=== PATIENT | female | born 1960 | race Caucasian/White ===

== ENCOUNTER 2024-05-27 09:12 | Emergency (ER) | payer MEDICAID ==
[~2024-05-27] VITALS: Ht 142.2 cm; Wt 40.0 kg
[~2024-05-27 09:12] MED LIST: ALPR2TAB2 PO; OLAN20TA PO
[2024-05-27 10:36] LABS: Urine Bacteria FEW /hpf (None Seen); Urine Blood Negative /uL (Negative); Urine Budding Yeast OCCASIONAL /hpf (None Seen); Urine Clarity Clear (Clear); Urine Color Light-Yellow (Yellow); Urine Protein, UAD Negative (Negative); Urine Specific Gravity 1.012 (1.001-1.035); Urine Urobilinogen Normal (Negative); Urine WBC 8 /hpf (0 - 5); Urine pH 6.5 (5.0-9.0)
[2024-05-27 11:18] LABS: Basophils # (auto) 0.1 10 ^3/uL (0-0.2); Basophils % (auto) 0.9 % (0.0-2.0); Eosinophils # (auto) 0.1 10 ^3/uL (0-0.8); Eosinophils % (auto) 1.6 % (0.0-7.0); Hematocrit 34.5 % (36.0-46.0); Lymphocytes % (auto) 24.2 % (10.0-50.0); Mean Corpuscular Hemoglobin 31.3 pg (28.0-32.0); Mean Corpuscular Hgb Conc. 34.7 g/dL (32.0-36.0); Mean Corpuscular Volume 90.4 fL (80.0-100.0); Monocytes # (auto) 0.9 10 ^3/uL (0-1.3); Monocytes % (auto) 10.8 % (0.0-12.0); Neutrophils # (auto) 5.3 10 ^3/uL (1.6-8.6); Neutrophils % (auto) 62.5 % (37.0-80.0); Red Blood Cells 3.82 10^6/uL (4.0-5.20); Red Cell Distribution Width 13.6 % (11.8-14.3); White Blood Cell 8.4 10^3/uL (4.4-10.8)
[2024-05-27 11:28] VITALS: TEMP 98.4
[2024-05-27 11:45] LABS: Chloride 93 mmol/L (98-107); Sodium 124 mmol/L (136-145)
[2024-05-27] MEDS: cefTRIAXone SOD 1,000 MG VL IM ONE (11:45)
[2024-05-27 11:46] LABS: Anion Gap 8 (5-15); Carbon Dioxide 23 mmol/L (20-30)
[2024-05-27 11:47] LABS: Calcium 9.3 mg/dL (8.7-10.4)
[2024-05-27] MEDS: IPRATROPIUM BROM 0.5 MG/2.5ML INH SOL NEB ONE (11:50)
[2024-05-27] MEDS: ALBUTEROL SULF 2.5 MG/0.5ML(0.5%) NEB SOLN NEB ONE (11:50)
[2024-05-27 11:51] LABS: BUN/Creatinine Ratio 8.3 (10.0-20.0); Blood Urea Nitrogen 6 mg/dL (9-23); Glucose 94 mg/dL (74-106)
[2024-05-27 11:54] VITALS: O2SAT 95
[2024-05-27] MEDS ORDERED: MELO7.5T7 PO (12:08)
[2024-05-27] MEDS ORDERED: BACDST PO (12:08)
[2024-05-27 12:12] VITALS: BP 146/90; PULSE 81; RESP 18
[2024-05-27] MEDS: HYDROmorphone HCL 2 MG/ML VL/or syr IM ONE (12:12)
== END 2024-05-27 12:30 | disposition home or self-care (01) ==
LOC: EDBD 09:12 → ER 09:12 → EDSEX 09:12 → ER 12:30
DX: M53.82 Other specified dorsopathies, cervical region (principal); N30.90 Cystitis, unspecified without hematuria; F17.210 Nicotine dependence, cigarettes, uncomplicated; F12.10 Cannabis abuse, uncomplicated; J44.9 Chronic obstructive pulmonary disease, unspecified; I12.9 Hypertensive chronic kidney disease with stage 1 through stage 4 chronic kidney disease, or unspecified chronic kidney disease; N18.9 Chronic kidney disease, unspecified; Z98.51 Tubal ligation status; Z87.440 Personal history of urinary (tract) infections
CPT/HCPCS: 36415; 72040; 80048; 81001; 85025; 94640; 96372; 99284; J0696; J1170

== ENCOUNTER 2025-06-30 10:37 | Inpatient (IN) | payer MEDICAID, OTHER ==
[~2025-06-30] VITALS: Ht 142.2 cm; Wt 42.5 kg
[~2025-06-30 10:37] MED LIST changes: +BACDST PO; +MELO7.5T7 PO
[2025-06-30 10:39] VITALS: TEMP 98.2
--- NOTE | 2025-06-30 11:02 | ED.PDOC ---
GI ASSESSMENT HPI Comments 65-year-old female with a history of hypertension, COPD and CKD brought in by private car complaining of constipation for the last 3 weeks, only having intermittent liquid bowel movements despite taking medication for constipation, associated with left lower quadrant abdominal pain, nausea, dysuria and gas pain. Patient denies fever or vomiting, but states she has very dark malodorous urine despite taking Keflex a week ago. She states she is currently on Zithromax for a respiratory illness. Chief Complaint: Constipation Time Seen by MD: 10:45 Primary Care Provider: INDERJIT Allergies: Coded Allergies: NO KNOWN ALLERGIES (Unverified , 01/02/15) Home Meds Active Scripts Meloxicam (Meloxicam) 7.5 Mg Tab, 1 TAB PO DAILY for 30 Days, #30 TAB 0 Refills Prov:EMILY HURT EDITORIAL MANAGER 05/27/24 Reported Medications Lisinopril (Lisinopril) 10 Mg Tab, 1 TAB PO DAILY 06/30/25 Folic Acid (Folic Acid) 1 Mg Tab, 1 TAB PO DAILY 06/30/25 Lactulose (Lactulose) 10 Gm/15 Ml Sulema, 15 ML PO BID 06/30/25 Hydroxyzine Hcl (Hydroxyzine Hcl) 10 Mg Tab, 1 TAB PO BID 06/30/25 Trazodone Hcl (Trazodone Hcl) 50 Mg Tab, 2 TAB PO QHSP PRN 06/30/25 Thiamine HCl (Thiamine Hydrochloride) 100 Mg Tab, 1 TAB PO DAILY 06/30/25 Gabapentin (Gabapentin) 300 Mg Cap, 1 CAP PO DAILY 06/30/25 Olanzapine (Zyprexa) 20 Mg Tab, 1 TAB PO DAILY, #30 TAB 10/07/19 Alprazolam (Xanax) 2 Mg Tab, 1 TAB PO QPM, #90 TAB 10/07/19 Discontinued Scripts Sulfamethoxazole W/Trimethopri (Bactrim Ds Tablet) 1 Tab Tb, 1 TAB PO BID for 5 Days, #10 TAB 0 Refills Prov:EMILY HURT EDITORIAL MANAGER 05/27/24 Information Source: Patient Mode of Arrival: Ambulatory Past Medical History PAST MEDICAL HISTORY: Asthma, CKF, COPD, Depression, HTN, UTI'S Surgical History: BTL, CONSOLE ASSEMBLER History: No Pertinent CONSOLE ASSEMBLER History Family History Family History: No family hx of DM, No family hx of HTN, No family hx ofKidney madonna, Family hx of Cancer Social History Smoker: Cigarettes Alcohol: Occasionally Drugs: Marijuana Lives In: Home All Other Systems: Reviewed and Negative (Comprehensive systems review obtained and negative except for what is stated in the HPI.) Physical Exam General Appearance: Mild Distress HEENT: Other (Pupils and face symmetric. Dry mucous membranes.) Neck: Full Range of Motion, Normal Inspection Respiratory: Lungs Clear, No Accessory Muscle Use, No Respiratory Distress, Normal Breath Sounds Cardiovascular: No Edema, No JVD, Regular Rate/Rhythm Breast Exam: Deferred Gastrointestinal: LLQ, Soft, Tenderness Genitalia: Deferred Pelvic: Deferred Rectal: Deferred Extremities: Normal inspection, Normal range of motion, Non-tender, No pedal edema Neurologic: Alert (Oriented x4), Other (Ambulatory. Appears very anxious.) Cerebellar Function: NOT DONE Reflexes: NOT DONE Skin: Dry, Normal Color, Warm Lymphatic: NOT DONE Was a procedure done? Was a procedure done?: No GI differential Dx Differential Diagnosis: Constipation, Diverticular disease, Gastroenteritis, Inflammatory BD, Ischemic Bowel, UTI, Dehydration, Electrolyte Imbalance, Bacterial, Viral, Impaction, Renal Failure, Kidney Stone X-Ray, Labs, Meds, VS Vital Signs Date Time Temp Pulse Resp B/P (MAP) Pulse Ox O2 Delivery O2 Flow Rate FiO2 06/30/25 17:05 73 16 164/95 (118) 98 06/30/25 13:31 85 20 169/97 (121) 98 06/30/25 10:39 98.2 88 15 163/85 96 98.2 Lab Test 06/30/25 11:30 06/30/25 11:00 Range/Units White Blood Count 7.6 4.4-10.8 10^3/uL Red Blood Count 3.75 L 4.0-5.20 10^6/uL Hemoglobin 12.1 L 12.2-16.2 g/dL Hematocrit 34.3 L 36.0-46.0 % Mean Corpuscular Volume 91.4 80.0-100.0 fL Mean Corpuscular Hemoglobin 32.2 H 28.0-32.0 pg Mean Corpuscular Hemoglobin Concent 35.2 32.0-36.0 g/dL Red Cell Distribution Width 12.7 11.8-14.3 % Platelet Count 383 140-450 10^3/uL Mean Platelet Volume 6.3 L 6.9-10.8 fL Neutrophils (%) (Auto) 56.9 37.0-80.0 % Lymphocytes (%) (Auto) 31.9 10.0-50.0 % Monocytes (%) (Auto) 8.7 0.0-12.0 % Eosinophils (%) (Auto) 1.5 0.0-7.0 % Basophils (%) (Auto) 1.0 0.0-2.0 % Neutrophils # (Auto) 4.3 1.6-8.6 10 ^3/uL Lymphocytes # (Auto) 2.4 0.4-5.4 10 ^3/uL Monocytes # (Auto) 0.7 0-1.3 10 ^3/uL Eosinophils # (Auto) 0.1 0-0.8 10 ^3/uL Basophils # (Auto) 0.1 0-0.2 10 ^3/uL Nucleated Red Blood Cells 0.0 % Sodium Level 130 L 136-145 mmol/L Potassium Level 4.8 3.5-5.1 mmol/L Chloride Level 100 98-107 mmol/L Carbon Dioxide Level 23 20-31 mmol/L Anion Gap 7 5-15 Blood Urea Nitrogen 9 9-23 mg/dL Creatinine 0.76 0.550-1.02 mg/dL Glomerular Filtration Rate Calc 88 >90 mL/min BUN/Creatinine Ratio 11.8 10.0-20.0 Serum Glucose 97 74-106 mg/dL Lactic Acid Level 0.7 0.4-2.0 mmol/L Calcium Level 9.4 8.7-10.4 mg/dL Total Bilirubin 0.3 0.2-1.0 mg/dL Aspartate Amino Transferase (AST) 22 13-40 U/L Alanine Aminotransferase (ALT) 16 7-40 U/L Alkaline Phosphatase 111 46-116 U/L Total Protein 7.2 5.7-8.2 g/dL Albumin 4.8 3.2-4.8 g/dL Urine Color Colorless Yellow Urine Clarity Clear Clear Urine pH 7.0 5.0-9.0 Urine Specific [place] 1.007 1.001-1.035 Urine Protein Negative Negative Urine Ketones Negative Negative Urine Blood Negative Negative /uL Urine Nitrite Negative Negative Urine Bilirubin Negative Negative Urine Urobilinogen Normal Negative mg/dL Urine Leukocyte Esterase 1+ Negative /uL Urine RBC 2 0 - 4 /hpf Urine Microscopic WBC 4 0-5 /HPF Urine Squamous Epithelial Cells Few <5 /hpf Urine Bacteria Few H None Seen /hpf Urine Glucose Normal Normal mg/dL Current Medications Medications (Trade) Dose Ordered Sig/Corrine Route Start Time Stop Time Status Last Admin Sodium Chloride 1,000 ml @ 1,000 mls/hr Q1H ONCE IV 06/30/25 11:15 06/30/25 12:14 DC 06/30/25 13:37 Ondansetron HCl (Zofran) 4 mg ONCE ONCE IV 06/30/25 11:15 06/30/25 11:16 DC 06/30/25 13:36 Dicyclomine HCl (Bentyl Injection) 20 mg ONCE ONCE IM 06/30/25 11:15 06/30/25 11:16 DC 06/30/25 13:37 Magnesium Citrate (Citrate Of Magnesia Solution) 300 ml ONCE ONCE PO 06/30/25 13:15 06/30/25 13:19 DC 06/30/25 16:34 [place] [id number] Ph: [phone] DIAGNOSTIC IMAGING Diagnostic Imaging Report : [id number] Signed PATIENT: AUDI HOPECCT: [id number] UNIT: [id number] : 1960 LOC: ER ROOM / BED: / AGE / SEX: 65 / F ADM STATUS: REG ER SERVICE 1102 ORDERING PHYSICIAN: WALE BROWN MD PROCEDURE(s): ABPL - CT AB PEL WO CON-NO ORAL OR IV REASON: LLQ abd pain, constipaton ORDER NUMBER(s): [id number], ACCESSION NUMBER(s): [id number] EXAM: CT CT AB PEL WO CON-NO ORAL OR IV HISTORY: LLQ abd pain, constipaton COMPARISON: None TECHNIQUE: Helical CT images of the abdomen and pelvis were performed without IV contrast. Sagittal and coronal reformatted images were obtained. This CT exam was performed using one or more of the following dose reduction techniques: Automated exposure control, adjustment of the mA and/or kv according to patient size, or the use of iterative reconstruction techniques. Radiation Dose: Abdomen/Pelvis: CTDIvol 5.07 mGy, DLP 213.87 mGy*cm. FINDINGS: CT abdomen: There is peribronchial thickening in the lower lobes. There is mucou s plugging in the right lower lobe. There is a calcified granuloma in the right lower lobe. There is emphysema in the lung bases. The heart is not enlarged. There is a trace pericardial effusion. The noncontrast liver, spleen, gallbladder, pancreas, left kidney, and bilateral adrenal glands are unremarkable. There is a right renal superior pole 2.1 cm lobulated calcification (images 13-15, series 2 ; images 55-59, series 601). No abdominal aortic aneurysm. There are atherosclerotic calcifications of the abdominal aorta and major branches. There is probable greater than 50% stenosis of the SMA origin and right common iliac artery. CT pelvis: No abnormal bowel dilatation or free air. There is trace free fluid in the pelvis. There are multiple air-fluid levels in the colon and small bowel. The appendix is not visualized, and there is no specific evidence of acute appendicitis. There are chronic appearing superior endplate compression fractures of T11 and T12; chronic appearing inferior endplate compression fr actures of L2 and L3. There is slight thoracolumbar dextroscoliosis. IMPRESSION: 1. Emphysema and reactive airways disease in the lung bases. 2. 2.1 cm nonobstructing calculus of the right renal superior pole. 3. Air-fluid levels in the small bowel and colon are nonspecific, but may be related to mild ileus or mild enteritis. 4. Trace free fluid in the pelvis may be physiologic. 5. Extensive atherosclerotic vascular disease with probable greater than 50% stenosis of the SMA origin and right common iliac artery. Recommend nonemergent cardiology and/or vascular surgery consultation if not already performed. Further characterization with CTA of the abdomen and pelvis may be useful. 6. Multiple chronic appearing spinal fractures as detailed above. 7. No evidence of bowel obstruction or other acute process in the abdomen or pelvis. ATED BY: DWAIN ENRIQUE MD DICTATED DATE/TIME: 06/30/25 1141 SIGNED BY: DWAIN ENRIQUE MD SIGNED DATE/TIME: 06/30/25 1141 CC: X-Ray, Labs, Meds, VS Comment 65-year-old female with a history of COPD, CKD, hypertension, frequent UTIs and depression complaining of left lower quadrant abdominal pain, constipation, nausea and dysuria. Vitals remarkable for BP 163/85 Exam remarkable for left lower quadrant tenderness to palpation Rhythm strip independently interpreted by me: Sinus rhythm, rate 88, no ectopy. CT abdomen and pelvis IMPRESSION: 1. Emphysema and reactive airways disease in the lung bases. 2. 2.1 cm nonobstructing calculus of the right renal superior pole. 3. Air-fluid levels in the small bowel and colon are nonspecific, but may be related to mild ileus or mild enteritis. 4. Trace free fluid in the pelvis may be physiologic. 5. Extensive atherosclerotic vascular disease with probable greater than 50% stenosis of the SMA origin and right common iliac artery. Recommend nonemergent cardiology and/or vascular surgery consultation if not already performed. Further characterization with CTA of the abdomen and pelvis may be useful. 6. Multiple chronic appearing spinal fractures as detailed above. 7. No evidence of bowel obstruction or other acute process in the abdomen or pelvis. CBC unremarkable, CMP remarkable for sodium 130, lactate normal UA pending Patient treated with the following in the ED: 1 L 0.9 normal saline IV bolus, Zofran 4 mg IV, Protonix 40 mg IV, Bentyl 20 mg IM. Magnesium citrate 300 mL p.o. and Fleet enema were ordered. On re-evaluation, patient is still having abdominal discomfort. Plan is to admit the patient for treatment of probable ileus, further imaging and vascular/surgical eval. Time of 1ST Reevaluation: 14:09 Reevaluation 1ST: Improved Patient Education/Counseling: Diagnosis, Treatment Family Education/Counseling: No Family Present SEPSIS Sepsis Screen Date sepsis recognized/suspect: Jun 30, 2025 Time Sepsis recognized/suspect: 1042 Recent Procedure: No On Antibiotic Therapy: No Respiratory Rate >20: No Heart Rate >90: No Temp<36 C (96.8 F) or >38.3 C: No SBP <90 or MAP <65 mmHG: No New Acute Mental Status Change: No Is the patient on CPAP, BIPAP,: No Physician Orders Blood Culture (06/30/25 11:02) Urine Bacterial Culture (06/30/25 11:02) Ct Ab Pel Wo Con-No Oral Or Iv (06/30/25 11:02) Vital Signs Date Time Temp Pulse Resp B/P (MAP) Pulse Ox O2 Delivery O2 Flow Rate FiO2 06/30/25 17:05 73 16 164/95 (118) 98 06/30/25 13:31 85 20 169/97 (121) 98 06/30/25 10:39 98.2 88 15 163/85 96 98.2 Laboratory Tests Test 06/30/25 11:30 Lactic Acid Level 0.7 mmol/L (0.4-2.0) White Blood Count 7.6 10^3/uL (4.4-10.8) Medications Medications Dose Ordered Sig/Corrine Route Start Time Stop Time Status Last Admin Dose Admin Dicyclomine HCl 20 mg ONCE ONCE IM 06/30/25 11:15 06/30/25 11:16 DC 06/30/25 13:37 Magnesium Citrate 300 ml ONCE ONCE PO 06/30/25 13:15 06/30/25 13:19 DC 06/30/25 16:34 Ondansetron HCl 4 mg ONCE ONCE IV 06/30/25 11:15 06/30/25 11:16 DC 06/30/25 13:36 Sodium Chloride 1,000 ml @ 1,000 mls/hr Q1H ONCE IV 06/30/25 11:15 06/30/25 12:14 DC 06/30/25 13:37 Departure 1 Departure Time of Disposition: 14:00 Impression: Primary Impression: Left lower quadrant abdominal pain Additional Impressions: Ileus Atherosclerosis of superior mesenteric artery Disposition: ADMITTED INPATIENT Admit to: Med Surg Condition: Guarded Critical Care Note Critical Care Time?: No Stability Stability form required: No Heart Score Heart Score: Heart Score Response (Comments) Value History N/A 0 EKG N/A 0 Age N/A 0 Risk Factors N/A 0 Troponin N/A 0 Total 0 I personally scribed for WALE BROWN MD ([email or web address]) on 06/30/25 at 11:13. Electron[facility] by [facility] ([facility] I personally scribed for WALE BROWN MD ([email or web address]) on 06/30/25 at 12:08. Electronically submitted by Wilma Sutton ([facility]). WALE BROWN MD Jun 30, 2025 11:02
--- NOTE | 2025-06-30 11:43 | DVH ---
EXAM: CT CT AB PEL WO CON-NO ORAL OR IV HISTORY: LLQ abd pain, constipaton COMPARISON: None TECHNIQUE: Helical CT images of the abdomen and pelvis were performed without IV contrast. Sagittal a nd coronal reformatted images were obtained. This CT exam was performed using one or more of the foll owing dose reduction techniques: Automated exposure control, adjustment of the mA and/or kv according to patient size, or the use of iterative reconstruction techniques. Radiation Dose: Abdomen/Pelvis: CTDIvol 5.07 mGy, DLP 213.87 mGy*cm. FINDINGS: CT abdomen: There is peribronchial thickening in the lower lobes. There is mucous plugging in the rig ht lower lobe. There is a calcified granuloma in the right lower lobe. There is emphysema in the earl g bases. The heart is not enlarged. There is a trace pericardial effusion. The noncontrast liver, spl een, gallbladder, pancreas, left kidney, and bilateral adrenal glands are unremarkable. There is a ri ght renal superior pole 2.1 cm lobulated calcification (images 13-15, series 2 ; images 55-59, series 601). No abdominal aortic aneurysm. There are atherosclerotic calcifications of the abdominal aorta and major branches. There is probable greater than 50% stenosis of the SMA origin and right common il iac artery. CT pelvis: No abnormal bowel dilatation or free air. There is trace free fluid in the pelvis. There are multiple air-fluid levels in the colon and small bowel. The appendix is not visualized, and there is no specific evidence of acute appendicitis. There are chronic appearing superior endplate tigre charisma fractures of T11 and T12; chronic appearing inferior endplate compression fractures of L2 and L3 . There is slight thoracolumbar dextroscoliosis. IMPRESSION: 1. Emphysema and reactive airways disease in the lung bases. 2. 2.1 cm nonobstructing calculus of the right renal superior pole. 3. Air-fluid levels in the small bowel and colon are nonspecific, but may be related to mild ileus or mild enteritis. 4. Trace free fluid in the pelvis may be physiologic. 5. Extensive atherosclerotic vascular disease with probable greater than 50% stenosis of the SMA orig in and right common iliac artery. Recommend nonemergent cardiology and/or vascular surgery consultat ion if not already performed. Further characterization with CTA of the abdomen and pelvis may be usef ul. 6. Multiple chronic appearing spinal fractures as detailed above. 7. No evidence of bowel obstruction or other acute process in the abdomen or pelvis.
[2025-06-30 11:53] LABS: Hematocrit 34.3 % (36.0-46.0); Hemoglobin 12.1 g/dL (12.2-16.2); Mean Corpuscular Hemoglobin 32.2 pg (28.0-32.0); Mean Corpuscular Volume 91.4 fL (80.0-100.0); Nucleated Red Blood Cells % 0.0 %
[2025-06-30 12:07] LABS: Alanine Aminotransferase 16 U/L (7-40); Albumin 4.8 g/dL (3.2-4.8); Alkaline Phosphatase 111 U/L (46-116); Anion Gap 7 (5-15); BUN/Creatinine Ratio 11.8 (10.0-20.0); Calcium 9.4 mg/dL (8.7-10.4); Carbon Dioxide 23 mmol/L (20-31); Chloride 100 mmol/L (98-107); Glucose 97 mg/dL (74-106); Potassium 4.8 mmol/L (3.5-5.1); Total Protein 7.2 g/dL (5.7-8.2)
[2025-06-30 12:08] LABS: Bilirubin, Total 0.3 mg/dL (0.2-1.0); Blood Urea Nitrogen 9 mg/dL (9-23); Sodium 130 mmol/L (136-145)
[2025-06-30] MEDS ORDERED: FLEET ENEMA(ADULT) 135 ML PR ONE (13:15)
[2025-06-30] MEDS: ONDANSETRON HCL 4 MG/2 ML VIAL IV ONE (13:36)
[2025-06-30] MEDS: SODIUM CHLORIDE 0.9% 1,000 ML IV ONE (13:37)
[2025-06-30] MEDS: DICYCLOMINE HCL (10MG/ML) 2 ML AMPULE IM ONE (13:37)
[2025-06-30] MEDS: MAGNESIUM CITRATE SOLUTION 300 ML BTL PO ONE (16:34)
[2025-06-30 17:05] VITALS: BP 164/95; PULSE 73; RESP 16; O2SAT 98
[2025-06-30] MEDS ORDERED: LISI10TA34 PO (17:14)
[2025-06-30] MEDS ORDERED: LACT10SO3 PO (17:14)
[2025-06-30] MEDS ORDERED: THIA100T13 PO (17:14)
[2025-06-30] MEDS ORDERED: GABA-1250 PO (17:14)
[2025-06-30] MEDS ORDERED: HYDRX10T PO (17:14)
[2025-06-30] MEDS ORDERED: FOLI-119 PO (17:14)
[2025-06-30] MEDS ORDERED: TRAZ-227 PO (17:14)
[2025-06-30] MEDS ORDERED: ONDANSETRON HCL 4 MG/2 ML VIAL IV PRN (17:15)
[2025-06-30] MEDS ORDERED: SODIUM CHLORIDE 0.9% 1,000 ML IV SCH (17:15)
[2025-06-30] MEDS ORDERED: ACETAMINOPHEN 325 MG TAB PO PRN (17:15)
[2025-06-30] MEDS ORDERED: DOCUSATE SOD 100 MG CAP PO PRN (17:15)
--- NOTE | 2025-06-30 17:37 | DVHHP2 ---
History of Present Illness Reason for Visit: Constipation, abdominal pain History of Present Illness Whitney Ignacio is a 65-year-old female with past medical history of COPD, hypertension, depression, bipolar, and schizophrenia who came to the hospital for abdominal pain and constipation. Patient states she has only had a liquid bowel movement for the last 2-3 weeks and she is having diffuse abdominal pain. Patient also complains of nausea, difficulty eating, and is concerned she is constipated. Cardiovascular: HTN Pulmonary: COPD Psych: Bipolar, Schizophrenia Smoke: <1 pack per day ALCOHOL: occassional Drugs: Marijuana Lives: with Family Domestic Violence: Neg Review of Systems Constitutional: No: Fever, Chills, Sweats, Weakness, Malaise, Other Eyes: No: Pain, Vision change, Conjunctivae inflammation, Eyelid inflammation, Other, Redness ENT: No: Ear pain, Ear discharge, Nose pain, Nose discharge, Nose congestion, Mouth pain, Mouth swelling, Throat pain, Throat swelling, Other Respiratory: No: Cough, Dry, Shortness of breath, SOB with excertion, Wheezing, Hemoptysis, Pleuritic Pain, Sputum, Wheezing, Other Cardiovascular: No: Chest Pain, Palpitations, Orthopnea, Paroxysmal Noc. Dyspnea, Edema, Lt Headedness, Other Gastrointestinal: Nausea, Abdominal Pain, Constipation; No: Vomiting, Diarrhea, Melena, Hematochezia, Other Genitourinary: No Dysuria, No Frequency, No Incontinence, No Hematuria, No Retention, No Other Musculoskeletal: No: other, neck pain, shoulder pain, arm pain, back pain, hand pain, leg pain, foot pain Skin: No: Rash, Lesions, Jaundice, Bruising, Other Neurological: No: Weakness, Numbness, Incoordination, Change in speech, Confusion, Seizures, Other Allergies: Coded Allergies: NO KNOWN ALLERGIES (Unverified , 01/02/15) Medications Current Medications Medications Dose Ordered Sig/Corrine Route Start Time Stop Time Status Last Admin Dose Admin Sodium Chloride 1,000 ml @ 75 mls/hr [id number] IV 06/30/25 17:15 UNV Ondansetron HCl 4 mg Q4HP PRN IV 06/30/25 17:15 UNV Docusate Sodium 100 mg BIDPRN PRN PO 06/30/25 17:15 UNV Acetaminophen 650 mg Q6HP PRN PO 06/30/25 17:15 UNV Gabapentin 300 mg DAILY PO 07/01/25 10:00 UNV Hydroxyzine HCl 10 mg BID PO 06/30/25 22:00 UNV Thiamine HCl 100 mg DAILY PO 07/01/25 10:00 UNV Trazodone HCl 100 mg QHSP PRN PO 06/30/25 17:15 UNV Patient Own Medication 1 tab DAILY PO 07/01/25 10:00 UNV Patient Own Medication 15 ml BID PO 06/30/25 22:00 UNV Patient Own Medication 1 tab DAILY PO 07/01/25 10:00 UNV Exam Vital Signs Vital Signs Date Time Temp Pulse Resp B/P (MAP) Pulse Ox O2 Delivery O2 Flow Rate FiO2 06/30/25 17:05 73 16 164/95 (118) 98 06/30/25 10:39 98.2 98.2 General Appearance: Alert, Oriented X3, Cooperative, mild distress HEENT: Atraumatic, PERRLA, Mucous membr. moist/pink Respiratory: Clear to auscultation, Normal air movement Cardiovascular: Regular rate, Normal S1, Normal S2 Abdominal: Normal bowel sounds, Soft, No hepatospenomegaly, Other (tenderness to palpitations) Extremities: No clubbing, No cyanosis, No edema, Normal pulses, No tenderness/swelling Skin: No rashes, No breakdown, No significant lesion Neuro: Normal gait, Normal speech, Strength at 5/5 X4 ext Psych/Mental Status: Mental status NL, Other (anxious, disorganized) Labs/Xrays Labs Test 06/30/25 11:30 Range/Units White Blood Count 7.6 4.4-10.8 10^3/uL Red Blood Count 3.75 L 4.0-5.20 10^6/uL Hemoglobin 12.1 L 12.2-16.2 g/dL Hematocrit 34.3 L 36.0-46.0 % Mean Corpuscular Volume 91.4 80.0-100.0 fL Mean Corpuscular Hemoglobin 32.2 H 28.0-32.0 pg Mean Corpuscular Hemoglobin Concent 35.2 32.0-36.0 g/dL Red Cell Distribution Width 12.7 11.8-14.3 % Platelet Count 383 140-450 10^3/uL Mean Platelet Volume 6.3 L 6.9-10.8 fL Neutrophils (%) (Auto) 56.9 37.0-80.0 % Lymphocytes (%) (Auto) 31.9 10.0-50.0 % Monocytes (%) (Auto) 8.7 0.0-12.0 % Eosinophils (%) (Auto) 1.5 0.0-7.0 % Basophils (%) (Auto) 1.0 0.0-2.0 % Neutrophils # (Auto) 4.3 1.6-8.6 10 ^3/uL Lymphocytes # (Auto) 2.4 0.4-5.4 10 ^3/uL Monocytes # (Auto) 0.7 0-1.3 10 ^3/uL Eosinophils # (Auto) 0.1 0-0.8 10 ^3/uL Basophils # (Auto) 0.1 0-0.2 10 ^3/uL Nucleated Red Blood Cells 0.0 % Sodium Level 130 L 136-145 mmol/L Potassium Level 4.8 3.5-5.1 mmol/L Chloride Level 100 98-107 mmol/L Carbon Dioxide Level 23 20-31 mmol/L Anion Gap 7 5-15 Blood Urea Nitrogen 9 9-23 mg/dL Creatinine 0.76 0.550-1.02 mg/dL Glomerular Filtration Rate Calc 88 >90 mL/min BUN/Creatinine Ratio 11.8 10.0-20.0 Serum Glucose 97 74-106 mg/dL Lactic Acid Level 0.7 0.4-2.0 mmol/L Calcium Level 9.4 8.7-10.4 mg/dL Total Bilirubin 0.3 0.2-1.0 mg/dL Aspartate Amino Transferase (AST) 22 13-40 U/L Alanine Aminotransferase (ALT) 16 7-40 U/L Alkaline Phosphatase 111 46-116 U/L Total Protein 7.2 5.7-8.2 g/dL Albumin 4.8 3.2-4.8 g/dL EXAM: CT CT AB PEL WO CON-NO ORAL OR IV FINDINGS: CT abdomen: There is peribronchial thickening in the lower lobes. There is mucous plugging in the right lower lobe. There is a calcified granuloma in the right lower lobe. There is emphysema in the lung bases. The heart is not enlarged. There is a trace pericardial effusion. The noncontrast liver, spleen, gallbladder, pancreas, left kidney, and bilateral adrenal glands are unremarkable. There is a right renal superior pole 2.1 cm lobulated calcification (images 13-15, series 2 ; images 55-59, series 601). No abdominal aortic aneurysm. There are atherosclerotic calcifications of the abdominal aorta and major branches. There is probable greater than 50% stenosis of the SMA origin and right common iliac artery. CT pelvis: No abnormal bowel dilatation or free air. There is trace free fluid in the pelvis. There are multiple air-fluid levels in the colon and small eleonora l. The appendix is not visualized, and there is no specific evidence of acute appendicitis. There are chronic appearing superior endplate compression fractures of T11 and T12; chronic appearing inferior endplate compression fractures of L2 and L3. There is slight thoracolumbar dextroscoliosis. IMPRESSION: 1. Emphysema and reactive airways disease in the lung bases. 2. 2.1 cm nonobstructing calculus of the right renal superior pole. 3. Air-fluid levels in the small bowel and colon are nonspecific, but may be related to mild ileus or mild enteritis. 4. Trace free fluid in the pelvis may be physiologic. 5. Extensive atherosclerotic vascular disease with probable greater than 50% stenosis of the SMA origin and right common iliac artery. Recommend nonemergent cardiology and/or vascular surgery consultation if not already performed. Further characterization with CTA of the abdomen and pelvis may be useful. 6. Multiple chronic appearing spinal fractures as detailed above. 7. No evidence of bowel obstruction or other acute process in the abdomen or pelvis. SEPSIS Sepsis Screen Date sepsis recognized/suspect: Jun 30, 2025 Time Sepsis recognized/suspect: 1042 Recent Procedure: No On Antibiotic Therapy: No Respiratory Rate >20: No Heart Rate >90: No Temp<36 C (96.8 F) or >38.3 C: No SBP <90 or MAP <65 mmHG: No New Acute Mental Status Change: No Is the patient on CPAP, BIPAP,: No Physician Orders Urinalysis (06/30/25 11:02) Blood Culture (06/30/25 11:02) Urine Bacterial Culture (06/30/25 11:02) Ct Ab Pel Wo Con-No Oral Or Iv (06/30/25 11:02) Admit (06/30/25 17:10) Code Status (06/30/25 17:10) Sodium Chloride 0.9% (06/30/25 17:15) Ondansetron Hcl (Zofran) (06/30/25 17:15) Docusate Sodium Capsule (Colace Capsule) (06/30/25 17:15) Complete Blood Count (07/01/25 04:00) Comprehensive Metabolic Panel (07/01/25 04:00) Condition: Serious (06/30/25 17:10) Acetaminophen Tablet (Tylenol Tablet) (06/30/25 17:15) Clear Liq Diet (06/30/25 Dinner) * Gi Dvh Digitizer Operator (06/30/25 17:14) Gabapentin Capsule (Neurontin Capsule) (07/01/25 10:00) Hydroxyzine Oral (Vistaril Oral) (06/30/25 22:00) Thiamine Tab (07/01/25 10:00) Trazodone Hcl (Desyrel) (06/30/25 17:15) (Nf) Folic Acid (07/01/25 10:00) (Nf) Lactulose (06/30/25 22:00) (Nf) Lisinopril (07/01/25 10:00) Vital Signs Date Time Temp Pulse Resp B/P (MAP) Pulse Ox O2 Delivery O2 Flow Rate FiO2 06/30/25 17:05 73 16 164/95 (118) 98 06/30/25 13:31 85 20 169/97 (121) 98 06/30/25 10:39 98.2 88 15 163/85 96 98.2 Laboratory Tests Test 06/30/25 11:30 Lactic Acid Level 0.7 mmol/L (0.4-2.0) White Blood Count 7.6 10^3/uL (4.4-10.8) Medications Medications Dose Ordered Sig/Corrine Route Start Time Stop Time Status Last Admin Dose Admin Dicyclomine HCl 20 mg ONCE ONCE IM 06/30/25 11:15 06/30/25 11:16 DC 06/30/25 13:37 20 MG Magnesium Citrate 300 ml ONCE ONCE PO 06/30/25 13:15 06/30/25 13:19 DC 06/30/25 16:34 300 ML Ondansetron HCl 4 mg ONCE ONCE IV 06/30/25 11:15 06/30/25 11:16 DC 06/30/25 13:36 4 MG Sodium Chloride 1,000 ml @ 1,000 mls/hr Q1H ONCE IV 06/30/25 11:15 06/30/25 12:14 DC 06/30/25 13:37 1,000 MLS/HR Assessment/Plan Assessment/Plan Assessment: Ileus, Constipation, Intractable abdominal pain, Bipolar, Schizophrenia, Hypertension, Plan: Admit to Med-Surg, GI consult, Clear liquid diet, IV hydration, Enema, PO laxatives, Home medications reconciled, Plan discussed with: Patient My Orders Orders - LEO MARINA Procedure Category Date Status Time Admit ADMIT 06/30/25 Transmitted 17:10 Code Status CODE 06/30/25 Transmitted 17:10 Sodium Chloride 0.9% PHA 06/30/25 Logged 17:15 Ondansetron Hcl PHA 06/30/25 Logged (Zofran) 17:15 Docusate Sodium PHA 06/30/25 Logged Capsule (Colace 17:15 Complete Blood Count LAB 07/01/25 Verified 04:00 Comprehensive LAB 07/01/25 Verified Metabolic Panel 04:00 Condition: Serious RONNA 06/30/25 In Process 17:10 Acetaminophen Tablet PHA 06/30/25 Logged (Tylenol Tablet) 17:15 Clear Liq Diet DIET 06/30/25 Transmitted Dinner * Gi Dvh Digitizer Operator CONS 06/30/25 Transmitted 17:14 Gabapentin Capsule PHA 07/01/25 Logged (Neurontin Capsule) 10:00 Hydroxyzine Oral PHA 06/30/25 Logged (Vistaril Oral) 22:00 Thiamine Tab PHA 07/01/25 Logged 10:00 Trazodone Hcl PHA 06/30/25 Logged (Desyrel) 17:15 (Nf) Folic Acid PHA 07/01/25 Logged 10:00 (Nf) Lactulose PHA 06/30/25 Logged 22:00 (Nf) Lisinopril PHA 07/01/25 Logged 10:00 Date of Service: Jun 30, 2025 Billing Provider: LEO MARINA Common Visit Codes: [id number] INP/OBS CARE (MOD) LEO MARINA Jun 30, 2025 17:37
[2025-06-30 18:16] LABS: Urine Protein, UAD Negative (Negative)
[2025-06-30] MEDS ORDERED: hydrOXYzine HCL 10 MG TAB PO SCH (22:00)
[2025-06-30] MEDS ORDERED: LACTULOSE 20Gm/30ML SOLN PO SCH (22:00)
[2025-07-01] MEDS ORDERED: THIAMINE HCL 100 MG TAB PO SCH (10:00)
[2025-07-01] MEDS ORDERED: FOLIC ACID 1 MG TAB PO SCH (10:00)
[2025-07-01] MEDS ORDERED: LISINOPRIL 5 MG TAB PO SCH (10:00)
[2025-07-01] MEDS ORDERED: GABAPENTIN 300 MG CAP PO SCH (10:00)
== END 2025-06-30 23:59 | disposition left against medical advice (07) | DRG 247 ==
LOC: ER 10:37 → OVERFLOW 17:10 → CENTRAL 23:57
PROVIDERS: ADMIT Nurse Practitioner Family; ATTEND Nurse Practitioner Family
DX: K56.7 Ileus, unspecified (principal); E87.1 Hypo-osmolality and hyponatremia; F17.210 Nicotine dependence, cigarettes, uncomplicated; K59.00 Constipation, unspecified; F20.9 Schizophrenia, unspecified; Z53.29 Procedure and treatment not carried out because of patient's decision for other reasons; F31.9 Bipolar disorder, unspecified; J44.89 Other specified chronic obstructive pulmonary disease; I12.9 Hypertensive chronic kidney disease with stage 1 through stage 4 chronic kidney disease, or unspecified chronic kidney disease; N18.9 Chronic kidney disease, unspecified; Z79.899 Other long term (current) drug therapy
CPT/HCPCS: 36415; 74176; 80053; 81001; 83605; 85025; 87040; 87086; 96361; 96372; 96374; G0378; J2405

== ENCOUNTER 2025-09-04 12:18 | Inpatient (IN) | payer MEDICAID ==
[~2025-09-04] VITALS: Ht 142.2 cm; Wt 51.7 kg
[~2025-09-04 12:18] MED LIST changes: -BACDST PO; +FOLI-119 PO; +GABA-1250 PO; +HYDRX10T PO; +LACT10SO3 PO; +LISI10TA34 PO; +THIA100T13 PO; +TRAZ-227 PO
--- NOTE | 2025-09-04 13:00 | ED.PDOC ---
GI ASSESSMENT HPI Comments This is a 65 year old female presenting to the ED with chief complaint of abdominal pain. Patient reports that she has been experiencing 10/10 RUQ abdominal pain since this morning. Patient reports that she had also pulled a muscle in her lower back on Monday after sneezing. Patient states she is running low on her Oxycodone at home, so she had taken Kratom last night. Patient denies any N/V/D, fever, chills, chest pain, SOB, dysuria, or flank pain. Chief Complaint: Abdominal Pain Time Seen by MD: 12:57 Primary Care Provider: INDERJIT Reviewed Notes: Nurses Notes, Medications, Allergies Allergies: Coded Allergies: NO KNOWN ALLERGIES (Unverified , 01/02/15) Home Meds Active Scripts Meloxicam (Meloxicam) 7.5 Mg Tab, 1 TAB PO DAILY for 30 Days, #30 TAB 0 Refills Prov:EMILY HURT MANAGER DELI 05/27/24 Reported Medications Lisinopril (Lisinopril) 10 Mg Tab, 1 TAB PO DAILY 06/30/25 Folic Acid (Folic Acid) 1 Mg Tab, 1 TAB PO DAILY 06/30/25 Lactulose (Lactulose) 10 Gm/15 Ml Sulema, 15 ML PO BID 06/30/25 Hydroxyzine Hcl (Hydroxyzine Hcl) 10 Mg Tab, 1 TAB PO BID 06/30/25 Trazodone Hcl (Trazodone Hcl) 50 Mg Tab, 2 TAB PO QHSP PRN 06/30/25 Thiamine HCl (Thiamine Hydrochloride) 100 Mg Tab, 1 TAB PO DAILY 06/30/25 Gabapentin (Gabapentin) 300 Mg Cap, 1 CAP PO DAILY 06/30/25 Olanzapine (Zyprexa) 20 Mg Tab, 1 TAB PO DAILY, #30 TAB 10/07/19 Alprazolam (Xanax) 2 Mg Tab, 1 TAB PO QPM, #90 TAB 10/07/19 Information Source: Patient Mode of Arrival: Ambulatory Timing: Hours Duration: Since onset Prehospital treatment: None Quality: Sharp Vomitus: None Stool: Normal Severity: Moderate Recent: None Recent Hx of: None Pain Location: RUQ Modifying Factors: Nothing Associated sign and symptoms: Abdominal Pain Past Medical History PAST MEDICAL HISTORY: Asthma, CKF, COPD, Depression, HTN, UTI'S Surgical History: BTL, Surgical History (Other): Right arm surgery TAXICAB COORDINATOR History: No Pertinent TAXICAB COORDINATOR History Family History Family History: No family hx of DM, No family hx of HTN, No family hx ofKidnmaxwell madonna, Family hx of Cancer Social History Smoker: Cigarettes Alcohol: Occasionally Drugs: Marijuana Lives In: Home Constitutional: denies: chills, diaphoresis, fatigue, fever, malaise, sweats, weakness, others EENTM: denies: blurred vision, double vision, ear bleeding, ear discharge, ear drainage, ear pain, ear ringing, eye pain, eye redness, hearing loss, mouth pain, mouth swelling, nasal discharge, nose bleeding, nose congestion, nose pain, photophobia, tearing, throat pain, throat swelling, voice changes, others Respiratory: denies: cough, hemoptysis, orthopnea, SOB at rest, shortness of breath, SOB with excertion, stridor, wheezing, others Cardiovascular: denies: chest pain, dizzy spells, diaphoresis, Dyspnea on exer tion, edema, irregular heart beat, left arm pain, lightheadedness, palpitations, PND, syncope, others Gastrointestinal: reports: abdominal pain; denies: abdomen distended, blood streaked bowels, constipated, diarrhea, dysphagia, difficulty swallowing, hematemesis, melena, nausea, poor appetite, poor fluid intake, rectal bleeding, rectal pain, vomiting, others Genitourinary: denies: abnormal vagina bleeding, burning, dyspareunia, dysuria, flank pain, frequency, hematuria, incontinence, pain, , vagina discharge, urgency, others Neurological: denies: dizziness, fainting, headache, left sided numbness, left sided weakness, numbness, paresthesia, pre-existing deficit, right sided numbness, right sided weakness, seizure, speech problems, tingling, tremors, weakness, others Integumetry: denies: bruises, change in color, change in hair/nails, dryness, laceration, lesions, lumps, rash, wounds, others Allergic/Immunocompromised: denies: Difficulty Healing, Frequent Infections, Hives, Itching, others Hematologic/Lymphatic: denies: anemia, blood clots, easy bleeding, easy bruising, swollen glands, others Endocrine: denies: excessive hunger, excessive sweating, excessive thirst, excessive urination, flushing, intolerance to cold, intolerance to heat, unexplained weight gain, unexplained weight loss, others Psychiatric: denies: anxiety, bipolar disorder, depression, hopeless, panic disorder, schizophrenia, sleepless, suicidal, others All Other Systems: Reviewed and Negative Physical Exam General Appearance: Moderate Distress, Thin HEENT: Normal ENT Inspection, Pharynx Normal, TMs Normal Neck: Full Range of Motion, Non-Tender, Normal, Normal Inspection Respiratory: Chest Non-Tender, Lungs Clear, No Accessory Muscle Use, No Respiratory Distress, Normal Breath Sounds Cardiovascular: No Edema, No JVD, No Murmur, No Gallop, Normal Peripheral Pulses, Regular Rate/Rhythm Breast Exam: Deferred Gastrointestinal: No Organomegaly, No Pulsatile Mass, Normal Bowel Sounds, RUQ, Soft, Tenderness Genitalia: Deferred Pelvic: Deferred Rectal: Deferred Extremities: No calf tenderness, Normal capillary refill, Normal inspection, Normal range of motion, Non-tender, No pedal edema Musculoskeletal : Apperance: Normal Neurologic: Alert, medium cycle salesperson II-XII nml as Tested, No Motor Deficits, Normal Affect, Normal Mood, No Sensory Deficits Cerebellar Function: Normal Reflexes: Normal Skin: Dry, Normal Color, Warm Lymphatic: No Adenopathy Was a procedure done? Was a procedure done?: No GI differential Dx Differential Diagnosis: Gastritis/PUD, Gastroenteritis, Inflammatory BD, Pancreatitis, Electrolyte Imbalance X-Ray, Labs, Meds, VS Vital Signs Date Time Temp Pulse Resp B/P (MAP) Pulse Ox O2 Delivery O2 Flow Rate FiO2 09/04/25 12:20 98.1 78 16 171/90 98 98.1 Lab Test 09/04/25 13:26 Range/Units White Blood Count 7.3 4.4-10.8 10^3/uL Red Blood Count 3.86 L 4.0-5.20 10^6/uL Hemoglobin 11.9 L 12.2-16.2 g/dL Hematocrit 34.2 L 36.0-46.0 % Mean Corpuscular Volume 88.6 80.0-100.0 fL Mean Corpuscular Hemoglobin 30.9 28.0-32.0 pg Mean Corpuscular Hemoglobin Concent 34.9 32.0-36.0 g/dL Red Cell Distribution Width 12.3 11.8-14.3 % Platelet Count 387 140-450 10^3/uL Mean Platelet Volume 6.2 L 6.9-10.8 fL Neutrophils (%) (Auto) 53.8 37.0-80.0 % Lymphocytes (%) (Auto) 33.3 10.0-50.0 % Monocytes (%) (Auto) 9.7 0.0-12.0 % Eosinophils (%) (Auto) 2.6 0.0-7.0 % Basophils (%) (Auto) 0.6 0.0-2.0 % Neutrophils # (Auto) 3.9 1.6-8.6 10 ^3/uL Lymphocytes # (Auto) 2.4 0.4-5.4 10 ^3/uL Monocytes # (Auto) 0.7 0-1.3 10 ^3/uL Eosinophils # (Auto) 0.2 0-0.8 10 ^3/uL Basophils # (Auto) 0 0-0.2 10 ^3/uL Nucleated Red Blood Cells 0.0 % Sodium Level 131 L 136-145 mmol/L Potassium Level 3.7 3.5-5.1 mmol/L Chloride Level 89 L 98-107 mmol/L Carbon Dioxide Level 35 H 20-31 mmol/L Anion Gap 7 5-15 Blood Urea Nitrogen 12 9-23 mg/dL Creatinine 0.71 0.550-1.02 mg/dL Glomerular Filtration Rate Calc 95 >90 mL/min BUN/Creatinine Ratio 16.9 10.0-20.0 Serum Glucose 96 74-106 mg/dL Calcium Level 9.1 8.7-10.4 mg/dL Total Bilirubin 0.2 0.2-1.0 mg/dL Aspartate Amino Transferase (AST) 25 13-40 U/L Alanine Aminotransferase (ALT) 20 7-40 U/L Alkaline Phosphatase 109 46-116 U/L Total Protein 6.5 5.7-8.2 g/dL Albumin 4.2 3.2-4.8 g/dL Lipase 36 12-53 U/L Gallbladder US indicates: 1.2 cm right upper pole nonobstructing renal stone. Otherwise unremarkable right upper quadrant ultrasound The patient's CBC is within normal limits The chemistry panel is within normal limits The lipase is within normal limits The patient continues to have a significant amount of pain The patient is being admitted at this time. The patient's diagnosis is intractable abdominal pain. Images Reviewed?: Images reviewed and evaluated by me Time of 1ST Reevaluation: 15:52 Reevaluation 1ST: Unchanged Patient Education/Counseling: Diagnosis, Treatment, Prognosis Family Education/Counseling: No Family Present SEPSIS Sepsis Screen Date sepsis recognized/suspect: Sep 04, 2025 Time Sepsis recognized/suspect: 122 Recent Procedure: No (T) On Antibiotic Therapy: No (N) Respiratory Rate >20: No Heart Rate >90: No Temp<36 C (96.8 F) or >38.3 C: No SBP <90 or MAP <65 mmHG: No New Acute Mental Status Change: No Is the patient on CPAP, BIPAP,: No Physician Orders Urinalysis (09/04/25 13:03) Gallbladder (09/04/25 13:03) Vital Signs Date Time Temp Pulse Resp B/P (MAP) Pulse Ox O2 Delivery O2 Flow Rate FiO2 09/04/25 12:20 98.1 78 16 171/90 98 98.1 Laboratory Tests Test 09/04/25 13:26 White Blood Count 7.3 10^3/uL (4.4-10.8) Departure 1 Departure Time of Disposition: 15:53 Impression: Primary Impression: Intractable abdominal pain Disposition: ADMITTED INPATIENT Admit to: Med Surg Condition: Fair Critical Care Note Critical Care Time?: No Stability Stability form required: No Heart Score Heart Score: Heart Score Response (Comments) Value History N/A 0 EKG N/A 0 Age N/A 0 Risk Factors N/A 0 Troponin N/A 0 Total 0 I personally scribed for JHOAN JONES MD [email or web address]) on 09/04/25 at 13:00. Electronically submitted by Sushil Peres [email or web address]). I personally scribed for JHOAN JONES MD ([email or web address]) on 09/04/25 at 14:55. Electronically submitted by Sushil Peres [email or web address]). JHOAN JONES MD Sep 04, 2025 13:00
[2025-09-04 13:55] LABS: Hematocrit 34.2 % (36.0-46.0); Hemoglobin 11.9 g/dL (12.2-16.2); Mean Corpuscular Hemoglobin 30.9 pg (28.0-32.0); Mean Corpuscular Volume 88.6 fL (80.0-100.0); Nucleated Red Blood Cells % 0.0 %
[2025-09-04 14:11] LABS: Alanine Aminotransferase 20 U/L (7-40); Albumin 4.2 g/dL (3.2-4.8); Alkaline Phosphatase 109 U/L (46-116); Anion Gap 7 (5-15); BUN/Creatinine Ratio 16.9 (10.0-20.0); Blood Urea Nitrogen 12 mg/dL (9-23); Calcium 9.1 mg/dL (8.7-10.4); Glucose 96 mg/dL (74-106); Potassium 3.7 mmol/L (3.5-5.1); Total Protein 6.5 g/dL (5.7-8.2)
[2025-09-04 14:12] LABS: Bilirubin, Total 0.2 mg/dL (0.2-1.0); Carbon Dioxide 35 mmol/L (20-31); Chloride 89 mmol/L (98-107); Sodium 131 mmol/L (136-145)
[2025-09-04 14:22] LABS: Lipase 36 U/L (12-53)
--- NOTE | 2025-09-04 14:53 | DVH ---
INDICATION: pain TECHNIQUE: Multiple real-time sonographic images were obtained of the right upper quadrant. COMPARISON: None FINDINGS: The liver demonstrates homogeneous echotexture without focal mass lesions. The liver measures 14.5 cm. The main portal vein is patent and demonstrates hepatopetal flow. Normal liver surface contour. There is no intrahepatic or extrahepatic ductal dilatation. The common duct measures 0.5 cm. The gallbladder is without evidence of stone or sludge. The gallbladder wall measures 1.2 mm and is within normal limits. The right kidney measures 7.8 cm. The right kidney is normal in contour, size, and shape. The echogenicity is normal. There is no hydronephrosis. There is a 1.2 cm right upper pole nonobstructing renal stone. The pancreas is within normal limits.. IMPRESSION: 1.2 cm right upper pole nonobstructing renal stone. Otherwise unremarkable right upper quadrant ultrasound
[2025-09-04 17:32] VITALS: PULSE 80; RESP 18; O2SAT 95
--- NOTE | 2025-09-04 19:08 | DVHHP2 ---
History of Present Illness Reason for Visit: Abdominal pain History of Present Illness 65-year-old female presents for evaluation of abdominal pain. Patient reports developing right upper quadrant abdominal pain today. She states the pain is intermittent. Currently denies any pain. Denies nausea or vomiting. No cardiac or respiratory complaints. Past Medical History COPD, hypertension, chronic kidney disease, asthma Past Surgical History Family History Noncontributory Smoke: No ALCOHOL: none Drugs: Marijuana Review of Systems Review of Systems Review of systems are currently negative otherwise addressed in HPI. Allergies: Coded Allergies: NO KNOWN ALLERGIES (Unverified , 01/02/15) Medications Current Medications Medications Dose Ordered Sig/Corrine Route Start Time Stop Time Status Last Admin Dose Admin Lisinopril 10 mg DAILY PO 09/05/25 10:00 Gabapentin 300 mg BID PO 09/04/25 22:00 Acetaminophen/ Hydrocodone Bitart 1 tab Q4HP PRN PO 09/04/25 18:15 Temazepam 15 mg QHSP PRN PO 09/04/25 18:15 Ondansetron HCl 4 mg Q4HP PRN IV 09/04/25 18:15 Acetaminophen 650 mg Q6HP PRN PO 09/04/25 18:15 Exam Vital Signs Vital Signs Date Time Temp Pulse Resp B/P (MAP) Pulse Ox O2 Delivery O2 Flow Rate FiO2 09/04/25 17:32 98.5 80 18 132/79 (96) 95 98.5 09/04/25 17:32 Room Air* 0 21 Exam Gen: 65-year-old female in mild distress Skin: Warm, dry, normal color and texture, no rash. HEENT: Normocephalic atraumatic, mucous membranes moist and pink. Neck: Cervical and supraclavicular nodes normal without enlargement, trachea is midline, thyroid gland is normal without masses. Pulmonary: Clear to auscultation and percussion bilaterally. Cardiac: Regular rate and rhythm. No murmur Abdomen: Soft, nontender, nondistended, bowel sounds present all 4 quadrants, no guarding, no rigidity, no organomegaly. Extremities: No cyanosis, clubbing, no edema Neuro: Cranial nerves II through XII grossly intact, normal affect and speech, no focal motor deficits. Labs/Xrays ORDERING PHYSICIAN: JHOAN JONES MD PROCEDURE(s): GBUS - GALLBLADDER REASON: pain ORDER NUMBER(s): [id number], ACCESSION NUMBER(s): [id number] INDICATION: pain TECHNIQUE: Multiple real-time sonographic images were obtained of the right upper quadrant. COMPARISON: None FINDINGS: The liver demonstrates homogeneous echotexture without focal mass lesions. The liver measures 14.5 cm. The main portal vein is patent and demonstrates hepatopetal flow. Normal liver surface contour. There is no intrahepatic or extrahepatic ductal dilatation. The common duct measures 0.5 cm. The gallbladder is without evidence of stone or sludge. The gallbladder wall measures 1.2 mm and is within normal limits. The right kidney measures 7.8 cm. The right kidney is normal in contour, size, and shape. The echogenicity is normal. There is no hydronephrosis. There is a 1.2 cm right upper pole nonobstructing renal stone. The pancreas is within normal limits.. IMPRESSION: 1.2 cm right upper pole nonobstructing renal stone. Otherwise unremarkable right upper quadrant ultrasound Labs Test 09/04/25 13:26 Range/Units White Blood Count 7.3 4.4-10.8 10^3/uL Red Blood Count 3.86 L 4.0-5.20 10^6/uL Hemoglobin 11.9 L 12.2-16.2 g/dL Hematocrit 34.2 L 36.0-46.0 % Mean Corpuscular Volume 88.6 80.0-100.0 fL Mean Corpuscular Hemoglobin 30.9 28.0-32.0 pg Mean Corpuscular Hemoglobin Concent 34.9 32.0-36.0 g/dL Red Cell Distribution Width 12.3 11.8-14.3 % Platelet Count 387 140-450 10^3/uL Mean Platelet Volume 6.2 L 6.9-10.8 fL Neutrophils (%) (Auto) 53.8 37.0-80.0 % Lymphocytes (%) (Auto) 33.3 10.0-50.0 % Monocytes (%) (Auto) 9.7 0.0-12.0 % Eosinophils (%) (Auto) 2.6 0.0-7.0 % Basophils (%) (Auto) 0.6 0.0-2.0 % Neutrophils # (Auto) 3.9 1.6-8.6 10 ^3/uL Lymphocytes # (Auto) 2.4 0.4-5.4 10 ^3/uL Monocytes # (Auto) 0.7 0-1.3 10 ^3/uL Eosinophils # (Auto) 0.2 0-0.8 10 ^3/uL Basophils # (Auto) 0 0-0.2 10 ^3/uL Nucleated Red Blood Cells 0.0 % Sodium Level 131 L 136-145 mmol/L Potassium Level 3.7 3.5-5.1 mmol/L Chloride Level 89 L 98-107 mmol/L Carbon Dioxide Level 35 H 20-31 mmol/L Anion Gap 7 5-15 Blood Urea Nitrogen 12 9-23 mg/dL Creatinine 0.71 0.550-1.02 mg/dL Glomerular Filtration Rate Calc 95 >90 mL/min BUN/Creatinine Ratio 16.9 10.0-20.0 Serum Glucose 96 74-106 mg/dL Calcium Level 9.1 8.7-10.4 mg/dL Total Bilirubin 0.2 0.2-1.0 mg/dL Aspartate Amino Transferase (AST) 25 13-40 U/L Alanine Aminotransferase (ALT) 20 7-40 U/L Alkaline Phosphatase 109 46-116 U/L Total Protein 6.5 5.7-8.2 g/dL Albumin 4.2 3.2-4.8 g/dL Lipase 36 12-53 U/L SEPSIS Sepsis Screen Date sepsis recognized/suspect: Sep 04, 2025 Time Sepsis recognized/suspect: 1734 Recent Procedure: No On Antibiotic Therapy: No Respiratory Rate >20: No Heart Rate >90: No Temp<36 C (96.8 F) or >38.3 C: No SBP <90 or MAP <65 mmHG: No New Acute Mental Status Change: No Is the patient on CPAP, BIPAP,: No Physician Orders Urinalysis (09/04/25 13:03) Gallbladder (09/04/25 13:03) Lisinopril Tablet (Zestril Tablet) (09/05/25 10:00) Gabapentin Capsule (Neurontin Capsule) (09/04/25 22:00) Basic Metabolic Panel (09/05/25 04:00) Admit (09/04/25 18:02) Hydrocodone-Acet 5/325mg Tab (Riva 5/32 (09/04/25 18:15) Temazepam (Restoril) (09/04/25 18:15) Ondansetron Hcl (Zofran) (09/04/25 18:15) Cardiac Diet-2gna,Lofat,Lochol (09/04/25 Dinner) Condition: Stable (09/04/25 18:02) Acetaminophen Tablet (Tylenol Tablet) (09/04/25 18:15) Bedrest With Bathroom Privileg (09/04/25 18:02) Vital Signs Date Time Temp Pulse Resp B/P (MAP) Pulse Ox O2 Delivery O2 Flow Rate FiO2 09/04/25 17:32 98.5 80 18 132/79 (96) 95 98.5 09/04/25 17:32 80 18 95 Room Air* 0 21 09/04/25 15:54 97.8 82 16 158/88 (111) 95 97.8 09/04/25 12:20 98.1 78 16 171/90 98 98.1 Laboratory Tests Test 09/04/25 13:26 White Blood Count 7.3 10^3/uL (4.4-10.8) Assessment/Plan Assessment/Plan Assessment Intractable abdominal pain Hypertension Chronic pain syndrome Plan Admit the patient to [facility] to the hospitalist Pain management Resume home medications Continue treatment per orders. Plan discussed with: Patient My Orders Orders - FERMÍN WEIR Procedure Category Date Status Time Lisinopril Tablet PHA 09/05/25 In Process (Zestril Tablet) 10:00 Gabapentin Capsule PHA 09/04/25 In Process (Neurontin Capsule) 22:00 Basic Metabolic Panel LAB 09/05/25 Verified 04:00 Admit ADMIT 09/04/25 Transmitted 18:02 Hydrocodone-Acet PHA 09/04/25 In Process 5/325mg Tab (Riva 18:15 Temazepam (Restoril) PHA 09/04/25 In Process 18:15 Ondansetron Hcl PHA 09/04/25 In Process (Zofran) 18:15 Cardiac DIET 09/04/25 Transmitted Diet-2gna,Lofat,Lochol Dinner Condition: Stable RONNA 09/04/25 In Process 18:02 Acetaminophen Tablet PHA 09/04/25 In Process (Tylenol Tablet) 18:15 Bedrest With Bathroom RONNA 09/04/25 In Process Privileg 18:02 Date of Service: Sep 04, 2025 Billing Provider: FERMÍN WEIR Common Visit Codes: [id number] INP/OBS CARE (MOD) FERMÍN WEIR Sep 04, 2025 19:08
[2025-09-04] MEDS: HYDROcodone-ACET 5/325MG TAB PO PRN (19:10)
[2025-09-04] MEDS: ONDANSETRON HCL 4 MG/2 ML VIAL IV PRN (19:10)
[2025-09-04] MEDS: GABAPENTIN 300 MG CAP PO SCH (22:11)
[2025-09-04] MEDS: ACETAMINOPHEN 325 MG TAB PO PRN (22:11)
[2025-09-05] VITALS (9 sets, daily range): BP systolic 105–165; BP diastolic 62–90; PULSE 71–87; RESP 16–18; TEMP 97.9–98.8; O2SAT 95–97
[2025-09-05] MEDS ORDERED: OXY10CRT PO (03:09)
[2025-09-05 06:22] LABS: Anion Gap 10 (5-15); Calcium 9.3 mg/dL (8.7-10.4); Carbon Dioxide 30 mmol/L (20-31)
[2025-09-05 06:24] LABS: Chloride 91 mmol/L (98-107); Potassium 3.2 mmol/L (3.5-5.1); Sodium 131 mmol/L (136-145)
[2025-09-05 06:27] LABS: BUN/Creatinine Ratio 9.8 (10.0-20.0)
[2025-09-05 06:29] LABS: Blood Urea Nitrogen 8 mg/dL (9-23); Glucose 106 mg/dL (74-106)
[2025-09-05] MEDS: LISINOPRIL 5 MG TAB PO SCH (10:31)
[2025-09-05 14:34] LABS: Urine Protein, UAD Negative (Negative)
[2025-09-05] MEDS: TEMAZEPAM 15 MG CAP PO PRN (21:09)
[2025-09-05] MEDS: hydrOXYzine HCL 10 MG TAB PO PRN (21:09)
[2025-09-06] VITALS (8 sets, daily range): BP systolic 103–127; BP diastolic 63–84; PULSE 67–80; RESP 16–17; TEMP 97.6–98.6; O2SAT 94–98
[2025-09-07 01:00] VITALS: BP 107/60; PULSE 84; RESP 17; TEMP 98.6; O2SAT 93
[2025-09-07 05:00] VITALS: BP 130/88; PULSE 79; RESP 17; TEMP 98.9; O2SAT 95
[2025-09-07 08:00] VITALS: BP 132/76; PULSE 87; RESP 21; TEMP 97.9; O2SAT 95
--- NOTE | 2025-09-08 01:23 | DVHPN2 ---
Reviewed: Care Plan, H&P, Labs, Medications Changes from previous H/P or p: No Changes General: Per HPI Objective Vitals Vital Signs Date Time Temp Pulse Resp B/P (MAP) Pulse Ox O2 Delivery O2 Flow Rate FiO2 09/07/25 09:23 132/76 09/07/25 08:00 87 21 95 Room Air* 0 21 09/07/25 08:00 97.9 97.9 General Appearance: Alert, Oriented X3, Cooperative Cardiovascular: Regular rate, Normal S1 Neuro: Normal gait, Normal speech Laboratory Results Laboratory Tests 09/04/25 13:26 09/05/25 05:05 Urinalysis Test 09/05/25 13:20 Urine Color Yellow (Yellow) Urine Clarity Clear (Clear) Urine pH 6.5 (5.0-9.0) Urine Specific [place] 1.009 (1.001-1.035) Urine Protein Negative (Negative) Urine Ketones Negative (Negative) Urine Blood Negative /uL (Negative) Urine Nitrite Negative (Negative) Urine Bilirubin Negative (Negative) Urine Urobilinogen Normal mg/dL (Negative) Urine Leukocyte Esterase 3+ /uL (Negative) Urine RBC 4 /hpf (0 - 4) Urine Microscopic WBC 96 /HPF (0-5) H Urine Squamous Epithelial Cells Few /hpf (<5) Urine Bacteria None seen /hpf (None Seen) Urine Hyaline Casts Few /lpf (0 - 2) Urine Glucose Normal mg/dL (Normal) Labs and/or images reviewed: Labs reviewed by me, Image(s) reviewed by me Assessment/Plan Assessment/Plan intractable abdominal pain Hypertension Chronic pain syndrome anemia, chronic hyponatremia pain control continue with current care Plan discussed with: Patient Date of Service: Sep 05, 2025 Billing Provider: ERNESTINA GARCIA DO Common Visit Codes: [id number] INP/OBS CARE(HIGH) ERNESTINA GARCIA DO Sep 08, 2025 01:23
--- NOTE | 2025-09-08 01:24 | DVHPN2 ---
Reviewed: Care Plan, H&P, Labs, Medications Changes from previous H/P or p: No Changes General: Per HPI Objective Vitals Vital Signs Date Time Temp Pulse Resp B/P (MAP) Pulse Ox O2 Delivery O2 Flow Rate FiO2 09/07/25 09:23 132/76 09/07/25 08:00 87 21 95 Room Air* 0 21 09/07/25 08:00 97.9 97.9 General Appearance: Alert, Oriented X3, Cooperative Cardiovascular: Regular rate, Normal S1 Neuro: Normal gait, Normal speech Laboratory Results Laboratory Tests 09/04/25 13:26 09/05/25 05:05 Urinalysis Test 09/05/25 13:20 Urine Color Yellow (Yellow) Urine Clarity Clear (Clear) Urine pH 6.5 (5.0-9.0) Urine Specific [place] 1.009 (1.001-1.035) Urine Protein Negative (Negative) Urine Ketones Negative (Negative) Urine Blood Negative /uL (Negative) Urine Nitrite Negative (Negative) Urine Bilirubin Negative (Negative) Urine Urobilinogen Normal mg/dL (Negative) Urine Leukocyte Esterase 3+ /uL (Negative) Urine RBC 4 /hpf (0 - 4) Urine Microscopic WBC 96 /HPF (0-5) H Urine Squamous Epithelial Cells Few /hpf (<5) Urine Bacteria None seen /hpf (None Seen) Urine Hyaline Casts Few /lpf (0 - 2) Urine Glucose Normal mg/dL (Normal) Labs and/or images reviewed: Labs reviewed by me, Image(s) reviewed by me Assessment/Plan Assessment/Plan intractable abdominal pain Hypertension Chronic pain syndrome anemia, chronic hyponatremia pain control continue with current care improving gradually Plan discussed with: Patient Date of Service: Sep 06, 2025 Billing Provider: ERNESTINA GARCIA DO Common Visit Codes: [id number] INP/OBS CARE(HIGH) ERNESTINA GARCIA DO Sep 08, 2025 01:24
--- NOTE | 2025-09-08 01:25 | DVHDS2 ---
Discharge Summary Date of Admission Sep 04, 2025 at 18:02 Date of Discharge: Sep 07, 2025 Labs/Diagnostic Data: Laboratory Results Test 09/05/25 13:20 09/05/25 05:05 09/04/25 13:26 Urine Color Yellow (Yellow) Urine Clarity Clear (Clear) Urine pH 6.5 (5.0-9.0) Urine Specific [place] 1.009 (1.001-1.035) Urine Protein Negative (Negative) Urine Ketones Negative (Negative) Urine Blood Negative /uL (Negative) Urine Nitrite Negative (Negative) Urine Bilirubin Negative (Negative) Urine Urobilinogen Normal mg/dL (Negative) Urine Leukocyte Esterase 3+ /uL (Negative) Urine RBC 4 /hpf (0 - 4) Urine Microscopic WBC 96 /HPF (0-5) Urine Squamous Epithelial Cells Few /hpf (<5) Urine Bacteria None seen /hpf (None Seen) Urine Hyaline Casts Few /lpf (0 - 2) Urine Glucose Normal mg/dL (Normal) Sodium Level 131 mmol/L (136-145) Potassium Level 3.2 mmol/L (3.5-5.1) Chloride Level 91 mmol/L (98-107) Carbon Dioxide Level 30 mmol/L (20-31) Anion Gap 10 (5-15) Blood Urea Nitrogen 8 mg/dL (9-23) Creatinine 0.82 mg/dL (0.550-1.02) Glomerular Filtration Rate Calc 80 mL/min (>90) BUN/Creatinine Ratio 9.8 (10.0-20.0) Serum Glucose 106 mg/dL (74-106) Calcium Level 9.3 mg/dL (8.7-10.4) White Blood Count 7.3 10^3/uL (4.4-10.8) Red Blood Count 3.86 10^6/uL (4.0-5.20) Hemoglobin 11.9 g/dL (12.2-16.2) Hematocrit 34.2 % (36.0-46.0) Mean Corpuscular Volume 88.6 fL (80.0-100.0) Mean Corpuscular Hemoglobin 30.9 pg (28.0-32.0) Mean Corpuscular Hemoglobin Concent 34.9 g/dL (32.0-36.0) Red Cell Distribution Width 12.3 % (11.8-14.3) Platelet Count 387 10^3/uL (140-450) Mean Platelet Volume 6.2 fL (6.9-10.8) Neutrophils (%) (Auto) 53.8 % (37.0-80.0) Lymphocytes (%) (Auto) 33.3 % (10.0-50.0) Monocytes (%) (Auto) 9.7 % (0.0-12.0) Eosinophils (%) (Auto) 2.6 % (0.0-7.0) Basophils (%) (Auto) 0.6 % (0.0-2.0) Neutrophils # (Auto) 3.9 10 ^3/uL (1.6-8.6) Lymphocytes # (Auto) 2.4 10 ^3/uL (0.4-5.4) Monocytes # (Auto) 0.7 10 ^3/uL (0-1.3) Eosinophils # (Auto) 0.2 10 ^3/uL (0-0.8) Basophils # (Auto) 0 10 ^3/uL (0-0.2) Nucleated Red Blood Cells 0.0 % Total Bilirubin 0.2 mg/dL (0.2-1.0) Aspartate Amino Transferase (AST) 25 U/L (13-40) Alanine Aminotransferase (ALT) 20 U/L (7-40) Alkaline Phosphatase 109 U/L (46-116) Total Protein 6.5 g/dL (5.7-8.2) Albumin 4.2 g/dL (3.2-4.8) Lipase 36 U/L (12-53) Other Laboratory Tests 09/05/25 05:05 09/04/25 13:26 Brief Hx & Hospital Course: intractable abdominal pain Hypertension Chronic pain syndrome anemia, chronic hyponatremia acute gastroenteritis pain control continue with current care pt left AMA Condition at Discharge: Fair Final Diagnosis/Problems List see above Discharge Disposition: AMA Discharge Instruct/Medications Scheduled Alprazolam (Xanax), 1 TAB PO QPM, (Reported) Folic Acid (Folic Acid), 1 TAB PO DAILY, (Reported) Gabapentin (Gabapentin), 1 CAP PO DAILY, (Reported) Hydroxyzine Hcl (Hydroxyzine Hcl), 1 TAB PO BID, (Reported) Lactulose (Lactulose), 15 ML PO BID, (Reported) Lisinopril (Lisinopril), 1 TAB PO DAILY, (Reported) Olanzapine (Zyprexa), 1 TAB PO DAILY, (Reported) Oxycodone Hcl (OxyCONTIN ER Tablet), 1 TAB PO TID, (Reported) Thiamine HCl (Thiamine Hydrochloride), 1 TAB PO DAILY, (Reported) Scheduled PRN Trazodone Hcl (Trazodone Hcl), 2 TAB PO QHSP PRN, (Reported) Discharge Statement: "Patient was advised to return to the ER or call 911 if any headaches, dizziness, shortness of breath, chest pain, abdominal pain, bleeding, fevers, or worsening of medical condition. Patient was counseled about treatment plan, medications, possible side effects, patientverbalized understanding. All questions were answered to the best of my ability. This discharge took greater then 30 minutes in planning, reviewing documentation, counseling the patient, and discussing with other team members." ASSESSMENT ASSESSMENT Assessment Date of Service: Sep 07, 2025 Billing Provider: ERNESTINA GARCIA DO Common Visit Codes: [id number] INP/OBS CARE(HIGH) ERNESTINA GARCIA DO Sep 08, 2025 01:24
== END 2025-09-07 12:00 | disposition left against medical advice (07) | DRG 249 ==
LOC: ER 12:18 → OVERFLOW 18:02 → WEST WING 23:54
PROVIDERS: ADMIT Internal Medicine; ATTEND Internal Medicine
DX: A09 Infectious gastroenteritis and colitis, unspecified (principal); E87.1 Hypo-osmolality and hyponatremia; A04.9 Bacterial intestinal infection, unspecified; I12.9 Hypertensive chronic kidney disease with stage 1 through stage 4 chronic kidney disease, or unspecified chronic kidney disease; J44.89 Other specified chronic obstructive pulmonary disease; F32.A Depression, unspecified; N18.9 Chronic kidney disease, unspecified; D64.9 Anemia, unspecified; G89.4 Chronic pain syndrome; Z53.29 Procedure and treatment not carried out because of patient's decision for other reasons; F17.210 Nicotine dependence, cigarettes, uncomplicated
CPT/HCPCS: 36415; 76705; 80048; 80053; 81001; 83690; 85025; G0378; J2405